=== PATIENT | female | born 1975 | race Caucasian/White ===

== ENCOUNTER 2019-03-12 21:13 | Emergency (ER) | payer MEDICARE, SELFPAY ==
[2019-03-12 21:13] VITALS: BP 118/67; PULSE 71; RESP 16; TEMP 36.4; O2SAT 100; BMI 28.5
--- NOTE | 2019-03-12 21:40 | CT_ITS ---
We are attempting to reach Brandon Cruz MD to discuss findings. An addendum with communication details will be sent when the communication is complete. STUDY: CT ABDOMEN AND PELVIS WITH CONTRAST REASON FOR EXAM: Female, 43 years old. Right lower quadrant pain x3 days. History of C-sections. RADIATION DOSAGE (If Supplied By Facility): CTDIvol = ( 12.07 ) mGy, DLP = ( 715.09 ) mGycm TECHNIQUE: Transaxial images were obtained from the dome of the diaphragm to the symphysis pubis without oral contrast. 100ML IV Isovue 300 was administered. Sagittal and coronal images were reconstructed. Individualized dose optimization techniques were used for this CT. COMPARISON: 10/11/2016. FINDINGS: Lung bases are clear. Visualized heart is normal. The liver is unremarkable. The gallbladder is contracted. The spleen and pancreas are unremarkable. The adrenal glands are normal. Horseshoe kidney. Parenchymal calcification is noted at the isthmus. No hydronephrosis or obstructive uropathy. The aorta is normal in caliber. There is no free fluid, free air, or organized collection. No bowel obstruction or inflammatory change. Normal appendix. Urinary bladder is nondistended. The uterine fundus appears adhesed to the anterior pelvic wall. The anterior uterine wall appears focally thinned, best demonstrated on series 2 image 91 and series 602 image 86. There is a 6.3 x 1.4 x 3.2 cm fluid collection in the anterior midline pelvic wall. This is concerning for abscess in the appropriate clinical setting. The finding is increased in size/more conspicuous than on the prior study. Fistula from the uterus cannot be excluded. There is a 2.8 cm left ovarian cyst, likely physiologic but larger than a typical follicular cyst. A 2 cm follicle is noted on the right. Normal osseous structures. CT/Abdomen/Pelvis W IV Cont ONLY IMPRESSION: 1. A 6.3 x 3.2 cm collection in the anterior pelvic wall, suspicious for abscess in the appropriate clinical setting. 2. The uterus appears adhesed to the anterior pelvic wall. Fistula to the pelvic wall collection cannot be excluded. 3. A 2.8 cm left ovarian cyst. This is likely physiologic but is larger than a typical follicular cyst. 4. Horseshoe kidney. Electronically Signed: Rosie Carmona MD at 23:03 EDT Tel , Service support ,
--- NOTE | 2019-03-12 21:43 | ED.VIS.GEN ---
History of Present Illness Chief Complaint: Abd Pain Informant: Patient Onset: Days - 3 Context: Gradual Onset Timing: Continuous Quality: burning Location: RLQ, radiates a little into low back Current Severity: Moderate Maximum Severity: Moderate Worsened by: nothing in particular. unaffected by foods. Relieved by: nothing but has tried no medications Associated Symptoms: no fever, n/v/d, urinary sx, vaginal sx. no injury. Narrative: States she has a history of ovarian cyst that were found incidentally but has never had any ruptured ones that she knows of. Had a in the past but no other abdominal surgeries. Prior similar symptoms: No Recent Illness/Hospitalization: No Past Medical History - Allergies and Home Meds Allergies/Adverse Reactions: Allergies sulfamethoxazole [From Bactrim] Allergy (Verified 08/29/17 22:58) Hives trimethoprim [From Bactrim] Allergy (Verified 08/29/17 22:58) Hives Primary Care Physician: Sctot Salmeron MD [Primary Care Provider] - Surgical History: - - Smoking Status: Former smoker Drugs: None Review of Systems General: Denies: Chills, Fever, Sweats Eyes: Denies: Visual changes - bilaterally, Diplopia ENT: Denies: Rhinorrhea, Sore throat Cardiovascular: Denies: Chest pain, Palpitations Respiratory: Denies: Dyspnea, Cough, Dyspnea on exertion Gastrointestinal: Reports: Abdominal pain. Denies: Nausea, Vomiting, Diarrhea, Melena, Hematochezia Genitourinary: Reports: - - LNMP 1 week ago, after 6 months of amenorrhea, - - No vaginal bleeding or discharge. Denies: Dysuria, Hematuria, Frequency Musculoskeletal: Reports: Back pain. Denies: Extremity Pain Skin: Denies: Rash, Wounds Neurological: Denies: Headache, Weakness, Numbness Physical Exam Vital Signs/Narrative: Vital Signs Temp Pulse Resp BP Pulse Ox 03/12/19 21:13 97.6 F L 71 16 118/67 100 Inital Vital Signs reviewed: Yes General: Well nourished, Well developed, No Acute Distress Head: Normocephalic, Atraumatic Eyes: Perrl, EOMI ENT: Moist mucous membranes, No rhinorrhea Neck: Supple, Nontender Cardiovascular: Regular rate, Regular rhythm, No murmurs Respiratory: No distress, CTA bilaterally, Chest nontender Abdomen: Soft, Nondistended, Normal bowel sounds, Tender - Right lower quadrant including McBurney's point and suprapubic area. Overlying skin is normal in this area. No color changes/cellulitis., Guarding - Voluntary, right lower quadrant, Psoas sign. Negative for: Rebound tenderness, Obturator sign, Rovsig's sign, Zamudio's sign Back: Nontender, Normal Inspection. Negative for: CVA tenderness Extremities: Nontender, No edema Skin: Normal color, No rash Neurological: Alert, Oriented x3, Cranial nerves II-XII grossly intact, Normal Strength, Normal Sensation Psychological: Normal affect, Normal Mood Diagnostic/Tx/Re-eval Impressions Abdomen/Pelvis CT 03/12/19 21:40 IMPRESSION: 1. A 6.3 x 3.2 cm collection in the anterior pelvic wall, suspicious for abscess in the appropriate clinical setting. 2. The uterus appears adhesed to the anterior pelvic wall. Fistula to the pelvic wall collection cannot be excluded. 3. A 2.8 cm left ovarian cyst. This is likely physiologic but is larger than a typical follicular cyst. 4. Horseshoe kidney. Electronically Signed: Rosie Carmona MD at 23:03 EDT Tel , Service support , ADDENDUM: 03/12/192316 IMPRESSION: 1. A 6.3 x 3.2 cm collection in the anterior pelvic wall, suspicious for abscess in the appropriate clinical setting. 2. The uterus appears adhesed to the anterior pelvic wall. Fistula to the pelvic wall collection cannot be excluded. 3. A 2.8 cm left ovarian cyst. This is likely physiologic but is larger than a typical follicular cyst. 4. Horseshoe kidney. N.B. : The above information has been verbally conveyed by Rosie Carmona MD to Brandon Cruz MD, on 03/12/2019 23:10:07 (ET). Electronically Signed: Rosie Carmona MD at 23:03 EDT Tel , Service support , ADDENDUM: 03/12/19231703/12/19 21:40 Abdomen/Pelvis W IV Cont ONLY [CT] Stat Laboratory Results 03/12/19 03/12/19 03/12/19 21:30 21:30 22:20 WBC 6.8 RBC 4.34 Hgb 13.2 Hct 39.9 MCV 91.9 MCH 30.4 MCHC 33.1 RDW 12.5 RDW Differential 42.2 Plt Count 270 MPV 10.6 Immature Gran % (Auto) 0.300 Neut % (Auto) 65.2 Lymph % (Auto) 27.2 [place] % (Auto) 4.8 Eos % (Auto) 1.9 Baso % (Auto) 0.6 Absolute Neuts (auto) 4.4 Absolute Lymphs (auto) 1.85 Total Counted Not Reportable Sodium 140 Potassium 3.8 Chloride 106 Carbon Dioxide 30.0 Anion Gap 4 L BUN 24 H Creatinine 0.78 Estim Creat Clear Calc 77.72 Est GFR (MDRD) Af Amer 104 Est GFR (MDRD) Non-Af 86 BUN/Creatinine Ratio 30.7 H Glucose 110 H Calcium 8.5 Urine Color Yellow Urine Clarity Sl. Cloudy Urine pH 7.0 Ur Specific [place] 1.015 Urine Protein Negative Urine Glucose (UA) Normal Urine Ketones Negative Urine Occult Blood Negative Urine Nitrite Negative Urine Bilirubin Negative Urine Urobilinogen Normal Ur Leukocyte Esterase Negative Urine RBC 0 SEEN Urine WBC 0 SEEN Ur Squamous Epith Cells 0 SEEN Urine Bacteria 0 SEEN Urine Mucus 0 SEEN Urine Test Negative - Medical Decision Making CT shows a 6.3 x 3.2 cm collection in the anterior pelvic wall with a nearby adhesed uterus to the anterior pelvic wall in the same area. Radiology discussed with me, they are not sure if there is a fistula causing this communication, or if it is an abscess. There is a left small ovarian cyst, that is likely unrelated. She also incidentally has a horseshoe kidney. Her blood work and urine are unremarkable with a negative test. She has no leukocytosis. In discussing this with the patient, she states that she had similar pain a year ago in April, while in [facility] visiting her sister. She had a CT scan showing a similarly-described collection that they wanted to do surgery for. However, she went home and then the pain went away and she forgot to follow-up for it. It may somehow be related, or it may be identical, unknown if it is different. Since she has a normal white blood count with no shift, I do not think this is an abscess that needs acute inpatient management. She declined analgesics. I discussed with Coni Gomez, on-call for her ACCOUNT SUPERVIS[employer] Dr. Therese Wilkerson. She will have the office call the patient tomorrow for close outpatient evaluation and planning, I think the patient can go home at this time. She was advised if she has any fevers or intractable symptoms to return to the ER, she is comfortable with this plan. ED Disposition - Plan for ED Patient: Disposition: Home or Assisted Living Diagnosis: Abdominal wall fluid collections Instructions: ED Abdominal Pain Unkn Cause Referrals: Therese Wilkerson MD [STAFF PHYSICIAN] - As soon as possible (Do not call the office, they said they will call you for an appointment)
--- NOTE | 2019-03-12 21:46 | ED.DCSUM_ITS ---
History of Present Illness Chief Complaint: Abd Pain Informant: Patient Onset: Days - 3 Context: Gradual Onset Timing: Continuous Quality: burning Location: RLQ, radiates a little into low back Current Severity: Moderate Maximum Severity: Moderate Worsened by: nothing in particular. unaffected by foods. Relieved by: nothing but has tried no medications Associated Symptoms: no fever, n/v/d, urinary sx, vaginal sx. no injury. Narrative: States she has a history of ovarian cyst that were found incidentally but has never had any ruptured ones that she knows of. Had a in the past but no other abdominal surgeries. Prior similar symptoms: No Recent Illness/Hospitalization: No Past Medical History - Allergies and Home Meds Allergies/Adverse Reactions: Allergies sulfamethoxazole [From Bactrim] Allergy (Verified 08/29/17 22:58) Hives trimethoprim [From Bactrim] Allergy (Verified 08/29/17 22:58) Hives Primary Care Physician: Scott Salmeron MD [Primary Care Provider] - Surgical History: - - Smoking Status: Former smoker Drugs: None Review of Systems General: Denies: Chills, Fever, Sweats Eyes: Denies: Visual changes - bilaterally, Diplopia ENT: Denies: Rhinorrhea, Sore throat Cardiovascular: Denies: Chest pain, Palpitations Respiratory: Denies: Dyspnea, Cough, Dyspnea on exertion Gastrointestinal: Reports: Abdominal pain. Denies: Nausea, Vomiting, Diarrhea, Melena, Hematochezia Genitourinary: Reports: - - LNMP 1 week ago, after 6 months of amenorrhea, - - No vaginal bleeding or discharge. Denies: Dysuria, Hematuria, Frequency Musculoskeletal: Reports: Back pain. Denies: Extremity Pain Skin: Denies: Rash, Wounds Neurological: Denies: Headache, Weakness, Numbness Physical Exam Vital Signs/Narrative: Vital Signs Temp Pulse Resp BP Pulse Ox 03/12/19 21:13 97.6 F L 71 16 118/67 100 Inital Vital Signs reviewed: Yes General: Well nourished, Well developed, No Acute Distress Head: Normocephalic, Atraumatic Eyes: Perrl, EOMI ENT: Moist mucous membranes, No rhinorrhea Neck: Supple, Nontender Cardiovascular: Regular rate, Regular rhythm, No murmurs Respiratory: No distress, CTA bilaterally, Chest nontender Abdomen: Soft, Nondistended, Normal bowel sounds, Tender - Right lower quadrant including McBurney's point and suprapubic area. Overlying skin is normal in this area. No color changes/cellulitis., Guarding - Voluntary, right lower quadrant, Psoas sign. Negative for: Rebound tenderness, Obturator sign, Rovsi g's sign, Zamudio's sign Back: Nontender, Normal Inspection. Negative for: CVA tenderness Extremities: Nontender, No edema Skin: Normal color, No rash Neurological: Alert, Oriented x3, Cranial nerves II-XII grossly intact, Normal Strength, Normal Sensation Psychological: Normal affect, Normal Mood Diagnostic/Tx/Re-eval Impressions Abdomen/Pelvis CT 03/12/19 21:40 IMPRESSION: 1. A 6.3 x 3.2 cm collection in the anterior pelvic wall, suspicious for abscess in the appropriate clinical setting. 2. The uterus appears adhesed to the anterior pelvic wall. Fistula to the pelvic wall collection cannot be excluded. 3. A 2.8 cm left ovarian cyst. This is likely physiologic but is larger than a typical follicular cyst. 4. Horseshoe kidney. Electronically Signed: Rosie Carmona MD at 23:03 EDT Tel , Service support , ADDENDUM: 03/12/192316 IMPRESSION: 1. A 6.3 x 3.2 cm collection in the anterior pelvic wall, suspicious for abscess in the appropriate clinical setting. 2. The uterus appears adhesed to the anterior pelvic wall. Fistula to the pelvic wall collection cannot be excluded. 3. A 2.8 cm left ovarian cyst. This is likely physiologic but is larger than a typical follicular cyst. 4. Horseshoe kidney. N.B. : The above information has been verbally conveyed by Rosie Carmona MD to Brandon Cruz MD, on 03/12/2019 23:10:07 (ET). Electronically Signed: Rosie Carmona MD at 23:03 EDT Tel , Service support , ADDENDUM: 03/12/19231703/12/19 21:40 Abdomen/Pelvis W IV Cont ONLY [CT] Stat Laboratory Results 03/12/19 03/12/19 03/12/19 21:30 21:30 22:20 WBC 6.8 RBC 4.34 Hgb 13.2 Hct 39.9 MCV 91.9 MCH 30.4 MCHC 33.1 RDW 12.5 RDW Differential 42.2 Plt Count 270 MPV 10.6 Immature Gran % (Auto) 0.300 Neut % (Auto) 65.2 Lymph % (Auto) 27.2 [place] % (Auto) 4.8 Eos % (Auto) 1.9 Baso % (Auto) 0.6 Absolute Neuts (auto) 4.4 Absolute Lymphs (auto) 1.85 Total Counted Not Reportable Sodium 140 Potassium 3.8 Chloride 106 Carbon Dioxide 30.0 Anion Gap 4 L BUN 24 H Creatinine 0.78 Estim Creat Clear Calc 77.72 Est GFR (MDRD) Af Amer 104 Est GFR (MDRD) Non-Af 86 BUN/Creatinine Ratio 30.7 H Glucose 110 H Calcium 8.5 Urine Color Yellow Urine Clarity Sl. Cloudy Urine pH 7.0 Ur Specific [place] 1.015 Urine Protein Negative Urine Glucose (UA) Normal Urine Ketones Negative Urine Occult Blood Negative Urine Nitrite Negative Urine Bilirubin Negative Urine Urobilinogen Normal Ur Leukocyte Esterase Negative Urine RBC 0 SEEN Urine WBC 0 SEEN Ur Squamous Epith Cells 0 SEEN Urine Bacteria 0 SEEN Urine Mucus 0 SEEN Urine Test Negative - Medical Decision Making CT shows a 6.3 x 3.2 cm collection in the anterior pelvic wall with a nearby adhesed uterus to the anterior pelvic wall in the same area. Radiology discussed with me, they are not sure if there is a fistula causing this communication, or if it is an abscess. There is a left small ovarian cyst, that is likely unrelated. She also incidentally has a horseshoe kidney. Her blood work and urine are unremarkable with a negative test. She has no leukocytosis. In discussing this with the patient, she states that she had similar pain a year ago in April, while in [facility] visiting her sister. She had a CT scan showing a similarly-described collection that they wanted to do surgery for. However, she went home and then the pain went away and she forgot to follow-up for it. It may somehow be related, or it may be identical, unknown if it is different. Since she has a normal white blood count with no shift, I do not think this is an abscess that needs acute inpatient management. She declined analgesics. I discussed with Coni Gomez, on-call for her BLOCK FEEDER Dr. Therese Wilkerson. She will have the office call the patient tomorrow for close outpatient evaluation and planning, I think the patient can go home at this time. She was advised if she has any fevers or intractable symptoms to return to the ER, she is comfortable with this plan. ED Disposition - Plan for ED Patient: Disposition: Home or Assisted Living Diagnosis: Abdominal wall fluid collections Instructions: ED Abdominal Pain Unkn Cause Referrals: Therese Wilkerson MD [STAFF PHYSICIAN] - As soon as possible (Do not call the office, they said they will call you for an appointment)
[2019-03-12] MEDS: 0.9% Normal Saline 1,000 ML 1000 ML IV (21:49)
[2019-03-12 21:59] LABS: Absolute Lymphocyte Count 1.85 X10^3/ul (0.83-4.51); Absolute Neutrophil Count 4.4 X10^3/uL (2.0-7.7); Basophil# 0.04 X10^3/uL; Basophil% 0.6 % (0-1); Eosinophil# 0.13 X10^3/uL; Eosinophils% 1.9 % (0-5); Hematocrit 39.9 % (37-47); Hemoglobin 13.2 g/dl (12.0-15.0); Lymphocyte # 1.85 X10^3/ul (4.0); Lymphocyte % 27.2 % (19-41); Mean Corp Hgb Conc 33.1 g/gl (32-36); Mean Corpuscular Hgb 30.4 pg (27.0-32.0); Mean Corpuscular Volume 91.9 fL (81-99); Mean Platelet Vol. 10.6 fl (6.2-12.0); Monocyte# 0.33 X10^3/uL; Monocyte% 4.8 % (0-10); Neutrophil # 4.44 X10^3/uL (2.7-7.7); Neutrophil % 65.2 % (47-70); Platelet Count 270 K/mm3 (150-450); RBC Distribution Width CV 12.5 % (11.6-14.6); RBC Distribution Width SD 42.2 fl (35.1-43.9); Red Blood Count 4.34 M/mm3 (4.2-5.4); White Blood Count 6.8 K/mm3 (4.4-11.0)
[2019-03-12 22:00] LABS: POSITIVE COUNT NO; POSITIVE DIFFERENTIAL NO; POSITIVE MORPHOLOGY NO
[2019-03-12 22:07] LABS: Anion Gap 4 (5-15); BUN 24 mg/dL (7-18); BUN/Creat Ratio 30.7 RATIO (10-20); Calcium,Total 8.5 mg/dL (8.5-10.1); Chloride 106 mmol/L (98-107); Creatinine, Serum 0.78 mg/dL (0.55-1.02); EST Glomerular Filtration Rate 86 mL/min (>60); Est Glom Filt Rate - Afr Amer 104 mL/min (>60); Estimated Creatinine Clearance 77.72 ml/min; Glucose 110 mg/dL (74-106); Potassium 3.8 mmol/L (3.5-5.1); Sodium Level 140 mmol/L (136-145)
[2019-03-12 22:29] LABS: Bacteria 0 SEEN /hpf (None Seen); Mucous, Urine 0 SEEN /hpf (<or=2+); Red Blood Cells-Urine 0 SEEN /hpf (0-5); Squamous Epithelial Cells - UA 0 SEEN /hpf (5-10); White Blood Cells 0 SEEN /hpf (0-5)
[2019-03-12 22:38] LABS: Color, Urine Yellow (Yellow); Glucose, Dipstick Normal (Normal); Ketone-Dipstick Negative (Negative); Leukocyte Esterase-Dipstick Negative /ul (Negative); Nitrite-Dipstick Negative (Negative); Occult Blood-Urine Negative /ul (Negative); Protein-Dipstick Negative (Negative); Specific Gravity, Urine 1.015 (1.002-1.030); Urine Bilirubin Dipstick Negative (Negative); Urine Clarity Sl. Cloudy (Clear); Urine Urobilinogen Normal (Normal)
[2019-03-12 22:53] LABS: Internal QC Validated? YES +Cl - CLEAR BKGD
[2019-03-12 22:54] LABS: Pregnancy, Urine Negative Negative
[2019-03-12 23:48] VITALS: BP 127/94; PULSE 72; RESP 18; O2SAT 100
== END 2019-03-12 23:49 | disposition home or self-care (01) ==
PROVIDERS: Emergency Provider Emergency Medicine; Family Provider Internal Medicine; PCP Internal Medicine
DX: R10.31 Right lower quadrant pain (principal); M54.9 Dorsalgia, unspecified; Q63.1 Lobulated, fused and horseshoe kidney; Z79.899 Other long term (current) drug therapy; Z87.891 Personal history of nicotine dependence
CPT/HCPCS: 74177; 80048; 81001; 81025; 85025; 96360; 96361; 99283; J7030; Q9967; A4216

== ENCOUNTER 2019-04-28 13:59 | Emergency (ER) | payer MEDICARE, SELFPAY ==
[2019-04-28 14:00] VITALS: BP 119/79; PULSE 78; RESP 18; TEMP 36.6; O2SAT 96; BMI 29.2
--- NOTE | 2019-04-28 14:11 | EKG12_ITS ---
Test Reason : CP Blood Pressure : / mmHG Vent. Rate : 068 BPM Atrial Rate : 068 BPM P-R Int : 152 ms QRS Dur : 084 ms QT Int : 376 ms P-R-T Axes : 024 031 027 degrees QTc Int : 399 ms Normal sinus rhythm Normal ECG Confirmed by ADAMS BRYANT ([id number]), multimedia editor ANH HILL ([id number]) on 05/02/2019 1:59:10 PM Referred By: ARIELLE Confirmed By:ADAMS BRYANT
--- NOTE | 2019-04-28 14:15 | RAD_ITS ---
STUDY: X-RAY CHEST REASON FOR EXAM: Female, 43 years old. TECHNIQUE: 1 view COMPARISON: April 04, 2016. FINDINGS: The lungs are clear and expanded. There is no demonstrated pleural abnormality. Normal size heart. Normal mediastinum and chi. Normal visualized pulmonary arteries. Normal visualized aortic arch and descending thoracic aorta. Normal visualized thoracic spine. Normal visualized ribs, clavicles, and shoulders. There is no demonstrated abnormality of the visualized soft tissue structures of the upper abdomen. RAD/Chest 1 View (Portable) IMPRESSION: Normal x-ray examination of the chest unchanged since April 04, 2016. Electronically Signed: Navi Ayers, at 14:39 EDT Tel , Service support ,
--- NOTE | 2019-04-28 14:27 | ED.DCSUM_ITS ---
- ER Visit Summary Date of Service: 04/28/19 Chief Complaint: Chest pain History of Present Illness: The patient is a 43 F past male history of hypothyroidism. 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 He denies any recent travel, surgery or immobilization. Said this morning he was awoken by this her chest at about 9:00 in the morning. Also lasted maybe 10 minutes and resolved. She denies any recent exertional dyspnea or exertional chest pain. No trouble with walking steps. She denies any shortness of breath, nausea or diaphoresis. She denies any hemoptysis. She denies any leg pain or swelling. Currently she is completely pain-free. Physical Examination: Middle-aged female no acute distress. Vital signs stable and afebrile. Pulse ox 96% on room air no signs of hypoxia. Initial blood pressure 119/79. She is in no distress and pain-free. H EENT exam normal. Neck nontender. No lymphadenopathy. Lungs clear to auscultation bilaterally. Heart regular rate and rhythm no murmur rate about 70. Chest wall nontender. Abdomen is soft and nontender normal bowel sounds no peritoneal signs. Patient moving all 4 extremities. They are neurovascular intact. Radial pulses are equal symmetrical. 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 She plantarflexion intact. Calves are nontender without edema or cords. Back nontender. Neurologically she is awake and alert with no focal motor deficits. Normal sensation. Normal range of motion to all upper and lower extremities. Test Results: EKG shows sinus rhythm rate of 68 no acute signs of IN or ischemia. Unchanged from a prior EKG from February 2016. Chest x-ray normal cardiac silhouette mediastinum read both by myself and radiologist. BC white count 4. Hemoglobin 11.6. No old available for comparison. Chemistries normal. Normal gap. Normal creatinine. Troponin normal. D-dimer normal. Emergency Department Course and Treatment: Patient with atypical nonexertional chest pain that lasted 10 minutes this completely resolved. Currently she is symptom-free. She will undergo cardiac work-up. Due to her past history of a DVT or PE I will do a d-dimer. At this time other than a prior history she has no recent travel, surgery, mobilization or hospitalization. Repeat exam patient is doing well at 11 PM. Patient I discussed all test results and options. She is comfortable with outpatient follow-up for chest pain of uncertain etiology. Given her family history. Getting an outpatient stress test. Patient knows return if worse. Treatment Plan: Follow-up with primary care physician for discussion of outpati ent stress testing. Disposition: Discharge Impression: Acute chest pain of uncertain etiology This note was generated with [employer] dictation software. It may contain incorrect words, spelling, and punctuation that were not noted in review of the chart prior to signing ED Disposition - Plan for ED Patient: Referrals: Scott Salmeron MD [Primary Care Provider] -
[2019-04-28 14:31] LABS: Absolute Lymphocyte Count 1.28 X10^3/ul (0.83-4.51); Absolute Neutrophil Count 2.9 X10^3/uL (2.0-7.7); Basophil# 0.04 X10^3/uL; Basophil% 0.9 % (0-1); Eosinophils% 2.2 % (0-5); Hematocrit 35.8 % (37-47); Hemoglobin 11.6 g/dl (12.0-15.0); Lymphocyte # 1.28 X10^3/ul (4.0); Lymphocyte % 28.1 % (19-41); Mean Corp Hgb Conc 32.4 g/gl (32-36); Mean Corpuscular Hgb 29.3 pg (27.0-32.0); Mean Corpuscular Volume 90.4 fL (81-99); Mean Platelet Vol. 10.3 fl (6.2-12.0); Monocyte# 0.25 X10^3/uL; Monocyte% 5.5 % (0-10); Neutrophil # 2.87 X10^3/uL (2.7-7.7); Neutrophil % 63.1 % (47-70); POSITIVE COUNT NO; POSITIVE DIFFERENTIAL NO; POSITIVE MORPHOLOGY NO; Platelet Count 177 K/mm3 (150-450); RBC Distribution Width CV 12.2 % (11.6-14.6); RBC Distribution Width SD 40.3 fl (35.1-43.9); Red Blood Count 3.96 M/mm3 (4.2-5.4); White Blood Count 4.6 K/mm3 (4.4-11.0)
[2019-04-28 14:39] LABS: D-Dimer Quantitative (DVT/PE) < 0.27 FEU/ug/m (0.27-0.49)
[2019-04-28 14:46] LABS: BUN 18 mg/dL (7-18); Creatinine, Serum 0.82 mg/dL (0.55-1.02); EST Glomerular Filtration Rate 82 mL/min (>60); Estimated Creatinine Clearance 73.93 ml/min; Glucose 115 mg/dL (74-106)
[2019-04-28 14:47] LABS: Anion Gap 2 (5-15); BUN/Creat Ratio 22.1 RATIO (10-20); Calcium,Total 8.5 mg/dL (8.5-10.1); Chloride 110 mmol/L (98-107); Est Glom Filt Rate - Afr Amer 99 mL/min (>60); Potassium 3.9 mmol/L (3.5-5.1); Sodium Level 139 mmol/L (136-145)
--- NOTE | 2019-04-28 15:13 | ED.DEP ---
ED Disposition - Plan for ED Patient: Disposition: Home or Assisted Living Instructions: CHEST PAIN, Uncertain Cause Referrals: Scott Salmeron MD [Primary Care Provider] - As soon as possible Additional Instructions: Follow-up with primary care physician this week. All your tests were normal today. With your family history of cardiac disease would be a good idea to get outpatient stress testing. Return to the ER if you are feeling worse such as recurrent chest pain or shortness of breath.
[2019-04-28 15:27] VITALS: BP 107/65; PULSE 71; RESP 15; O2SAT 95
== END 2019-04-28 15:33 | disposition home or self-care (01) ==
PROVIDERS: Emergency Provider Emergency Medicine; Family Provider Internal Medicine; PCP Internal Medicine
DX: R07.9 Chest pain, unspecified (principal); E03.9 Hypothyroidism, unspecified; Z79.899 Other long term (current) drug therapy; Z86.718 Personal history of other venous thrombosis and embolism; Z86.711 Personal history of pulmonary embolism
CPT/HCPCS: 71045; 80048; 84484; 85025; 85379; 93005; 99284; A4216

== ENCOUNTER 2019-05-18 21:25 | Emergency (ER) | payer MEDICARE, SELFPAY ==
[2019-05-18 21:26] VITALS: BP 149/98; PULSE 81; RESP 18; TEMP 36.9; O2SAT 100; BMI 29.4
--- NOTE | 2019-05-18 22:52 | EKG12_ITS ---
Test Reason : DIZZINESS Blood Pressure : / mmHG Vent. Rate : 074 BPM Atrial Rate : 074 BPM P-R Int : 144 ms QRS Dur : 090 ms QT Int : 384 ms P-R-T Axes : 004 018 012 degrees QTc Int : 426 ms Normal sinus rhythm Normal ECG Confirmed by NED HOPE, CHUY ([id number]), clinical editor ANH HILL ([id number]) on 05/22/2019 2:20:22 PM Referred By: JEFF Confirmed By:CHUY MARINO MD
--- NOTE | 2019-05-18 22:53 | RAD_ITS ---
STUDY: X-RAY CHEST REASON FOR EXAM: Female, 43 years old. Dizziness TECHNIQUE: PA and lateral views of the chest. COMPARISON: April 28, 2019 chest x-ray FINDINGS: The lungs are clear and expanded. There is no demonstrated pleural abnormality. Normal size heart. Normal mediastinum and chi. Normal visualized pulmonary arteries. Normal visualized aortic arch and descending thoracic aorta. Normal visualized thoracic spine. Normal visualized ribs, clavicles, and shoulders. There is no demonstrated abnormality of the visualized soft tissue structures of the upper abdomen. RAD/Chest PA and Lateral IMPRESSION: Normal x-ray examination of the chest. Electronically Signed: Shirley Minor MD at 23:46 EDT Tel , Service support ,
--- NOTE | 2019-05-18 22:53 | ED.VISSUMM ---
- ER Visit Summary Date of Service: 05/18/19 Chief Complaint: Off balance History of Present Illness: The patient is a 43 F who complains of a vague dizziness and generalized weakness. She states this began today. She came in to have her blood pressure and blood sugar checked. She states she has a history of prior similar symptoms which were attributed to high blood pressure and anxiety. She was treated for hypertension previously but states she just quit taking the medication. She denies any recent illness such as fevers chest pain shortness of breath nausea vomiting diarrhea. She denies any pain. She states that she just feels tired and weak today. She states when she stands for any significant amount of time she feels weak. She states her legs feel like Jell-O. Physical Examination: Afebrile vitals unremarkable, blood pressure 149/98 Moist mucous membranes Heart regular rate and rhythm Lungs are clear Abdomen soft Alert and oriented with no focal or lateralizing neurological deficits, normal strength and sensation, no ataxia Test Results: EKG shows normal sinus rhythm at a rate of 74. Chest x-ray is normal. CBC BMP unremarkable. Urinalysis normal. Orthostatic vital signs negative. Emergency Department Course and Treatment: Patient's work-up as above is unremarkable. She was treated with IV fluids. She was advised on supportive care and reassured. She understands to return for new or worsening symptoms. She was discharged. Treatment Plan: [] Disposition: Discharge Impression: Dizziness Weakness This note was generated with [employer] dictation software. It may contain incorrect words, spelling, and punctuation that were not noted in review of the chart prior to signing ED Disposition - Plan for ED Patient: Referrals: Scott Salmeron MD [Primary Care Provider] -
[2019-05-18 23:11] VITALS: BP 123/73; BP 129/80; BP 130/84; PULSE 74; PULSE 77
[2019-05-18 23:12] LABS: Absolute Lymphocyte Count 1.38 X10^3/ul (0.83-4.51); Absolute Neutrophil Count 3.6 X10^3/uL (2.0-7.7); Basophil# 0.04 X10^3/uL; Basophil% 0.7 % (0-1); Eosinophil# 0.13 X10^3/uL; Eosinophils% 2.4 % (0-5); Hematocrit 40.1 % (37-47); Hemoglobin 13.3 g/dl (12.0-15.0); Lymphocyte # 1.38 X10^3/ul (4.0); Lymphocyte % 25.2 % (19-41); Mean Corp Hgb Conc 33.2 g/gl (32-36); Mean Corpuscular Hgb 29.3 pg (27.0-32.0); Mean Corpuscular Volume 88.3 fL (81-99); Mean Platelet Vol. 10.4 fl (6.2-12.0); Monocyte# 0.35 X10^3/uL; Monocyte% 6.4 % (0-10); Neutrophil # 3.56 X10^3/uL (2.7-7.7); Neutrophil % 65.1 % (47-70); POSITIVE COUNT NO; POSITIVE DIFFERENTIAL NO; POSITIVE MORPHOLOGY NO; Platelet Count 248 K/mm3 (150-450); RBC Distribution Width CV 12.1 % (11.6-14.6); RBC Distribution Width SD 38.5 fl (35.1-43.9); Red Blood Count 4.54 M/mm3 (4.2-5.4); White Blood Count 5.5 K/mm3 (4.4-11.0)
[2019-05-18 23:17] LABS: Bacteria 0 SEEN /hpf (None Seen); Mucous, Urine 0 SEEN /hpf (<or=2+); Red Blood Cells-Urine 0 SEEN /hpf (0-5); White Blood Cells 0 SEEN /hpf (0-5)
[2019-05-18] MEDS: 0.9% Normal Saline 1,000 ML 999 ML IV (23:18)
[2019-05-18 23:22] LABS: Color, Urine Straw (Yellow); Glucose, Dipstick Normal (Normal); Ketone-Dipstick Negative (Negative); Leukocyte Esterase-Dipstick Negative /ul (Negative); Nitrite-Dipstick Negative (Negative); Occult Blood-Urine Negative /ul (Negative); Protein-Dipstick Negative (Negative); Specific Gravity, Urine 1.005 (1.002-1.030); Urine Bilirubin Dipstick Negative (Negative); Urine Clarity Clear (Clear); Urine Urobilinogen Normal (Normal)
[2019-05-18 23:26] VITALS: BP 129/73; PULSE 77; RESP 16; O2SAT 99
[2019-05-18 23:28] LABS: Squamous Epithelial Cells - UA 0-5 SEEN /hpf (5-10)
[2019-05-18 23:28] LABS: Anion Gap 5 (5-15); BUN 16 mg/dL (7-18); BUN/Creat Ratio 17.5 RATIO (10-20); Calcium,Total 8.9 mg/dL (8.5-10.1); Chloride 108 mmol/L (98-107); Creatinine, Serum 0.91 mg/dL (0.55-1.02); EST Glomerular Filtration Rate 72 mL/min (>60); Est Glom Filt Rate - Afr Amer 87 mL/min (>60); Glucose 133 mg/dL (74-106); Sodium Level 142 mmol/L (136-145)
--- NOTE | 2019-05-18 23:57 | ED.DEP ---
ED Disposition - Plan for ED Patient: Instructions: DIZZINESS, Unk Cause, WEAKNESS, Unk Cause Referrals: Scott Salmeron MD [Primary Care Provider] -
[2019-05-19 00:05] VITALS: BP 129/73; PULSE 77; RESP 16; O2SAT 100
== END 2019-05-19 00:11 | disposition home or self-care (01) ==
PROVIDERS: Emergency Provider Emergency Medicine; Family Provider Internal Medicine; PCP Internal Medicine
DX: R42 Dizziness and giddiness (principal); R53.83 Other fatigue; I10 Essential (primary) hypertension; F41.9 Anxiety disorder, unspecified; Z72.0 Tobacco use; Z79.899 Other long term (current) drug therapy
CPT/HCPCS: 71046; 80048; 81001; 85025; 93005; 96360; 99284; J7030; A4216

== ENCOUNTER 2020-04-14 21:55 | Emergency (ER) | payer MEDICARE, MEDICAID, SELFPAY ==
[2020-04-14 21:55] VITALS: BP 140/75; PULSE 78; RESP 16; TEMP 36.6; O2SAT 100; BMI 31.8
--- NOTE | 2020-04-14 22:21 | ED.VISSUMM ---
- ER Visit Summary Date of Service: 04/14/20 Chief Complaint: Left ear feels clogged History of Present Illness: The patient is a 44 F presenting stating that her left ear feels clogged. She states this has been ongoing for the past several days. She tried OTC earwax removal drops with no success. She denies pain. She states her hearing feels muffled. Denies fever or other complaints. Physical Examination: Vitals are stable. Patient is afebrile. Alert no acute distress. HEENT exam left TM obscured by cerumen. Right TM normal. Neck is supple. Lungs are clear and equal bilaterally. Heart is regular rate and rhythm. Extremities are unremarkable. Skin is warm and dry. Remainder of exam is unremarkable. Emergency Department Course and Treatment: Debrox drops were instilled into the left ear. Ear was irrigated per nursing. She has improvement of her symptoms. She still has cerumen in her ear but she feels much improved. She is advised to continue the [id number] earwax removal drops. Advised to follow-up with ENT as needed. Advised return to ED for worsening complaints. Disposition: Discharged home Impression: Left cerumen impaction This note was generated with [employer] dictation software. It may contain incorrect words, spelling, and punctuation that were not noted in review of the chart prior to signing ED Disposition - Plan for ED Patient: Instructions: ED Cerumen Impaction Treated Referrals: Romeo Brizuela MD [STAFF PHYSICIAN] - Scott Salmeron MD [Primary Care Provider] -
[2020-04-14] MEDS: Carbamide Peroxide 15 ML Bottle 5 DRP OTIC (22:24)
--- NOTE | 2020-04-14 23:10 | ED.DEP ---
ED Disposition - Plan for ED Patient: Instructions: ED Cerumen Impaction Treated Referrals: Scott Salmeron MD [Primary Care Provider] - Romeo Brizuela MD [STAFF PHYSICIAN] -
== END 2020-04-14 23:34 | disposition home or self-care (01) ==
LOC: ED 22:47
PROVIDERS: Emergency Provider Emergency Medicine; PCP Internal Medicine
DX: H61.22 Impacted cerumen, left ear (principal)
CPT/HCPCS: 99283